=== PATIENT | male | born 1940 | race Caucasian/White ===

== ENCOUNTER → 2022-01-23 | Outpatient (REF) | payer MEDICARE, OTHER | LOC: M SFHCDERM 17:03 | PROVIDERS: ATTEND Dermatology | DX: C44.509 Unspecified malignant neoplasm of skin of other part of trunk (principal) ==

== ENCOUNTER → 2022-02-27 | Outpatient (REF) | payer OTHER, MEDICARE | LOC: M SFHCDERM 17:29 | PROVIDERS: ATTEND Dermatology | DX: L90.5 Scar conditions and fibrosis of skin (principal) ==